=== PATIENT | female | born 1930 | race Caucasian/White ===

== ENCOUNTER 2019-05-22 16:01 | Inpatient (IN) ==
[2019-05-22 17:44] LABS: Basophils % 0.2 % (0.0-0.8); Hematocrit 28.7 VOL% (35.7-47.0); Hemoglobin 8.8 GM/DL (12.0-16.0); Immature Granulocytes % 1.2 %; Lymphocytes # 1.9 10*3/uL (1.4-4.0); Lymphocytes % 11.6 % (21.3-54.2); Mean Corpuscular HGB Conc 30.7 GM/DL (32-36); Mean Corpuscular Volume 102.5 FL (87-102); Mean Platelet Volume 12.6 FL (9.6-12.0); NRBC # 0.07 10*3/uL; Platelet Count 268 T/CUMM (130-400); Red Cell Distribution Width 20.2 % (9.3-17.3)
[2019-05-22 18:05] LABS: Alanine Aminotransferase 242 U/L (13-56); Albumin 1.4 G/DL (3.4-5.0); Alkaline Phosphatase 97 U/L (45-117); Aspartate Amino Transferase 656 U/L (0-37); Blood Urea Nitrogen 75 MG/DL (7-18); Estimated Glom Filtration Rate 22 ML/MIN; Glucose 381 MG/DL (74-106); Osmolality,Calculated 323.8 MOS/KG (273-304); Total Protein 6.7 G/DL (6.4-8.3)
[2019-05-22 18:06] LABS: Band Neutrophils 1 % (0-10); Lymphocytes 9 % (20-55); Nucleated Red Blood Cells 1 (0-5); Segmented Neutrophils 85 % (50-85); Total Cells Counted 100
[2019-05-22 18:07] LABS: Hypochromasia 1+
[2019-05-22 18:08] LABS: Anisocytosis 1+; Elliptocytes Few
[2019-05-22 18:09] LABS: Platelet Estimate Adequate
[2019-05-22] MEDS ORDERED: SODIUM CHLORIDE 0.9% 1,000 ML IV STA (19:58)
[2019-05-22] MEDS ORDERED: VANCOMYCIN INJ 1,000 MG in SODIUM CHLORIDE 0.9% 250 ML IV STA ×3 (19:58→20:23)
[2019-05-22] MEDS ORDERED: cefTRIAXone 1,000 MG in SODIUM CHLORIDE 0.9% 100 ML IV STA (19:58)
[2019-05-22] MEDS ORDERED: ONDANSETRON 4 MG/2 ML VIAL IV PRN (20:06)
[2019-05-22] MEDS ORDERED: cefTRIAXone 1,000 MG VIAL ONE (20:10)
[2019-05-22] MEDS ORDERED: SODIUM CHLORIDE 0.9% 100 ML IV ONE (20:10)
[2019-05-22] MEDS ORDERED: VANCOMYCIN 1,000 MG VIAL ONE (20:41)
[2019-05-22 20:50] LABS: Apearance,Urine CLEAR (Clear); Bacteria,Urine Occasional /HPF (Few); Bilirubin,Urine Negative (Negative); Blood, Urine Negative (Negative); Glucose,Urine (UA) Negative (Negative); Ketones,Urine Negative (Negative); Mucus,Urine Occasional /LPF (Occasional); Nitrite,Urine Negative (Negative); Protein,Urine Negative; RBC,Urine 2 /HPF (0-4); Squamous Epithelial Cell,Urine Occasional /HPF (0-10); Urine Color Yellow (Yellow); Urine Specific Gravity 1.018 (1.001-1.035); Urine Urobilinogen < 2.0 EU/DL (0.2-1.0); WBC,Urine 3 /HPF (0-6)
[2019-05-22] MEDS ORDERED: VANCOMYCIN INJ 1,250 MG in SODIUM CHLORIDE 0.9% 250 ML IV PRN (21:05)
[2019-05-22] MEDS ORDERED: VANCOMYCIN INJ 500 MG in SODIUM CHLORIDE 0.9% 250 ML IV ONE (21:30)
[2019-05-22] MEDS: SODIUM CHLORIDE 0.9% 1,000 ML IV SCH (22:22)
[2019-05-23 02:56] LABS: Basophils % 0.1 % (0.0-0.8); Eosinophils % 0.3 % (0.00-10.9); Hematocrit 26.2 VOL% (35.7-47.0); Hemoglobin 7.9 GM/DL (12.0-16.0); Immature Granulocytes Absolute 0.14 #; Lymphocytes # 1.6 10*3/uL (1.4-4.0); Lymphocytes % 11.2 % (21.3-54.2); Mean Corpuscular HGB Conc 30.2 GM/DL (32-36); Mean Platelet Volume 12.9 FL (9.6-12.0); Monocytes % 5.9 % (1.7-12.7); NRBC # 0.05 10*3/uL; Neutrophils % 81.5 % (38.7-73.9); Platelet Count 246 T/CUMM (130-400); Red Blood Count 2.52 MC/CUMM (3.8-5.5)
[2019-05-23 03:07] LABS: Calcium 8.2 MG/DL (8.5-10.1); Osmolality,Calculated 331.3 MOS/KG (273-304)
[2019-05-23 03:27] LABS: Band Neutrophils 1 % (0-10); Hypochromasia 2+; Lymphocytes 13 % (20-55); Ovalocytes Few; Platelet Estimate Normal; Segmented Neutrophils 83 % (50-85); Total Cells Counted 100
[2019-05-23] MEDS: FAMOTIDINE 20 MG/2 ML VIAL IV SCH (09:56)
[2019-05-23] MEDS ORDERED: VANCOMYCIN INJ 1,250 MG in SODIUM CHLORIDE 0.9% 250 ML IV ONE (12:00)
[2019-05-23] MEDS: SODIUM CHLORIDE 0.9% 1,000 ML IV SCH ×3 (12:29→20:07)
[2019-05-23] MEDS ORDERED: SODIUM CHLORIDE 0.9% 1,000 ML IV PRN (13:57)
[2019-05-23] MEDS ORDERED: DEXTROSE 50% 25 GM/50 ML VIAL IV PRN (13:59)
[2019-05-23] MEDS ORDERED: GLUCAGON 1 MG VIAL IM PRN (13:59)
[2019-05-23 14:40] LABS: INR 1.9; PT Patient Result 20.8 SECS (9.6-12.2)
[2019-05-23] MEDS: ALBUMIN 25% 25 GM in PREMIX 1 EACH IV SCH ×2 (14:58→21:40)
[2019-05-23] MEDS ORDERED: FUROSEMIDE 40 MG/4 ML VIAL ONE (20:00)
[2019-05-23] MEDS ORDERED: FUROSEMIDE 20 MG/2 ML VIAL IV ONE (20:11)
[2019-05-23] MEDS ORDERED: cefTRIAXone 1,000 MG in SYRINGE 1 EACH IV SCH (20:30)
[2019-05-23] MEDS: INSULIN GLARGINE 100 UNIT/ML SUBCUT SCH (20:54)
[2019-05-23] MEDS: INSULIN REGULAR 100 UNIT/ML SUBCUT SCH (20:54)
[2019-05-24] MEDS ORDERED: SODIUM CHLORIDE 0.9% 250 ML IV ONE (02:34)
[2019-05-24 03:07] LABS: Basophils % 0.2 % (0.0-0.8); Hemoglobin 10.4 GM/DL (12.0-16.0); Immature Granulocytes % 3.6 %; Immature Granulocytes Absolute 0.56 #; Lymphocytes # 1.5 10*3/uL (1.4-4.0); Lymphocytes % 9.6 % (21.3-54.2); Mean Corpuscular HGB Conc 30.6 GM/DL (32-36); Mean Corpuscular Volume 100.3 FL (87-102); Mean Platelet Volume 13.5 FL (9.6-12.0); Monocytes % 6.3 % (1.7-12.7); NRBC # 0.35 10*3/uL; Neutrophils % 80.3 % (38.7-73.9); Platelet Count 225 T/CUMM (130-400); Red Blood Count 3.39 MC/CUMM (3.8-5.5); Red Cell Distribution Width 19.1 % (9.3-17.3); White Blood Count 15.7 T/CUMM (4-12)
[2019-05-24 03:23] LABS: INR 3.7
[2019-05-24 03:36] LABS: PT Patient Result 40.1 SECS (9.6-12.2)
[2019-05-24 03:55] LABS: Lymphocytes 4 % (20-55); Nucleated Red Blood Cells 2 (0-5); Platelet Estimate Normal; Segmented Neutrophils 95 % (50-85); Total Cells Counted 100
[2019-05-24 03:56] LABS: Hypochromasia Slight; Polychromasia Few
[2019-05-24 04:15] LABS: Albumin 2.2 G/DL (3.4-5.0); Bilirubin,Total 1.3 MG/DL (0.2-1.0); Calcium 8.5 MG/DL (8.5-10.1); Total Protein 5.9 G/DL (6.4-8.3)
[2019-05-24] MEDS: SODIUM CHLORIDE 0.9% 1,000 ML IV SCH (05:57)
[2019-05-24] MEDS ORDERED: LEVOTHYROXINE 150 MCG TABLET PEG SCH (06:00)
[2019-05-24] MEDS: ALBUMIN 25% 25 GM in PREMIX 1 EACH IV SCH ×3 (06:00→22:13)
[2019-05-24] MEDS: INSULIN REGULAR 100 UNIT/ML SUBCUT SCH ×3 (06:30→18:41)
[2019-05-24] MEDS ORDERED: ceFAZolin 1,000 MG in SYRINGE 1 EACH IV ONE (06:53)
[2019-05-24] MEDS: FAMOTIDINE 20 MG/2 ML VIAL IV SCH (09:13)
[2019-05-24] MEDS: INSULIN GLARGINE 100 UNIT/ML SUBCUT SCH ×2 (09:14→21:10)
[2019-05-24] MEDS: DEXTROSE 5% 1,000 ML IV SCH (10:40)
[2019-05-24] MEDS: CEFEPIME 1,000 MG in SYRINGE 1 EACH IV SCH ×2 (12:07→22:13)
[2019-05-25] MEDS: INSULIN REGULAR 100 UNIT/ML SUBCUT SCH ×4 (00:15→18:00)
[2019-05-25 04:57] LABS: Basophils % 0.3 % (0.0-0.8); Eosinophils # 0.2 10*3/uL (0.0-0.87); Eosinophils % 1.3 % (0.00-10.9); Hematocrit 33.7 VOL% (35.7-47.0); Hemoglobin 10.6 GM/DL (12.0-16.0); Immature Granulocytes % 5.6 %; Immature Granulocytes Absolute 0.74 #; Lymphocytes # 1.9 10*3/uL (1.4-4.0); Lymphocytes % 14.6 % (21.3-54.2); Mean Corpuscular HGB Conc 31.5 GM/DL (32-36); Mean Corpuscular Volume 99.1 FL (87-102); Mean Platelet Volume 14.1 FL (9.6-12.0); Monocytes % 6.9 % (1.7-12.7); NRBC # 0.28 10*3/uL; Neutrophils % 71.3 % (38.7-73.9); Platelet Count 211 T/CUMM (130-400); Red Cell Distribution Width 18.6 % (9.3-17.3); White Blood Count 13.2 T/CUMM (4-12)
[2019-05-25 05:15] LABS: INR 3.8
[2019-05-25 05:19] LABS: Band Neutrophils 2 % (0-10); Hypochromasia 1+; Lymphocytes 15 % (20-55); Nucleated Red Blood Cells 1 (0-5); Ovalocytes Slight; Platelet Estimate Adequate; Segmented Neutrophils 74 % (50-85); Total Cells Counted 100
[2019-05-25 05:22] LABS: PT Patient Result 40.4 SECS (9.6-12.2)
[2019-05-25] MEDS: ALBUMIN 25% 25 GM in PREMIX 1 EACH IV SCH ×3 (05:39→22:51)
[2019-05-25] MEDS: LEVOTHYROXINE 175 MCG TABLET PEG SCH (05:39)
[2019-05-25] MEDS: DEXTROSE 5% 1,000 ML IV SCH (05:39)
[2019-05-25 05:50] LABS: Bilirubin,Total 1.4 MG/DL (0.2-1.0); Calcium 8.5 MG/DL (8.5-10.1); Total Protein 6.2 G/DL (6.4-8.3)
[2019-05-25] MEDS ORDERED: FUROSEMIDE 40 MG/4 ML VIAL IV ONE (06:40)
[2019-05-25] MEDS: INSULIN GLARGINE 100 UNIT/ML SUBCUT SCH ×2 (09:38→22:51)
[2019-05-25] MEDS: LIDOCAINE 5% PATCH TRANSDERM SCH (09:39)
[2019-05-25] MEDS: FAMOTIDINE 20 MG/2 ML VIAL IV SCH (09:42)
[2019-05-25] MEDS: CEFEPIME 1,000 MG in SYRINGE 1 EACH IV SCH ×2 (10:48→22:52)
[2019-05-25] MEDS ORDERED: FUROSEMIDE 40 MG/4 ML VIAL IV SCH (16:00)
[2019-05-25] MEDS: FUROSEMIDE 40 MG/4 ML VIAL IV SCH (16:12)
[2019-05-25] MEDS: ACETAMINOPHEN 325 MG TABLET PO PRN (17:43)
[2019-05-26] MEDS: INSULIN REGULAR 100 UNIT/ML SUBCUT SCH ×4 (01:17→19:08)
[2019-05-26] MEDS: DEXTROSE 5% 1,000 ML IV SCH ×2 (02:25→23:58)
[2019-05-26 05:02] LABS: INR 4.3
[2019-05-26 05:03] LABS: PT Patient Result 46.1 SECS (9.6-12.2)
[2019-05-26 05:06] LABS: Calcium 8.4 MG/DL (8.5-10.1); Osmolality,Calculated 329.7 MOS/KG (273-304); Prealbumin 6.2 MG/DL (20-40)
[2019-05-26] MEDS: LEVOTHYROXINE 175 MCG TABLET PEG SCH (05:33)
[2019-05-26] MEDS ORDERED: ceFAZolin 1,000 MG in SYRINGE 1 EACH IV ONE (06:00)
[2019-05-26] MEDS: ALBUMIN 25% 25 GM in PREMIX 1 EACH IV SCH ×3 (06:15→22:20)
[2019-05-26] MEDS ORDERED: PROTHROMBIN COMPLEX CONC 1,500 UNIT in IV BAG 1 EACH IV ONE (07:14)
[2019-05-26] MEDS ORDERED: SODIUM CHLORIDE 0.9% 1,000 ML IV PRN (07:14)
[2019-05-26 07:53] LABS: Basophils # 0.1 10*3/uL (0.0-0.2); Basophils % 0.3 % (0.0-0.8); Eosinophils # 0.2 10*3/uL (0.0-0.87); Hematocrit 30.7 VOL% (35.7-47.0); Hemoglobin 9.7 GM/DL (12.0-16.0); Immature Granulocytes % 5.1 %; Lymphocytes # 1.9 10*3/uL (1.4-4.0); Lymphocytes % 11.9 % (21.3-54.2); Mean Corpuscular HGB Conc 31.6 GM/DL (32-36); Mean Corpuscular Volume 99.7 FL (87-102); Mean Platelet Volume 13.6 FL (9.6-12.0); Monocytes % 6.5 % (1.7-12.7); NRBC # 0.26 10*3/uL; Neutrophils % 75.2 % (38.7-73.9); Platelet Count 192 T/CUMM (130-400); Red Blood Count 3.08 MC/CUMM (3.8-5.5); Red Cell Distribution Width 18.5 % (9.3-17.3); White Blood Count 15.6 T/CUMM (4-12)
[2019-05-26 07:59] LABS: Albumin 2.8 G/DL (3.4-5.0); Bilirubin,Direct 0.99 MG/DL (0.0-0.20); Bilirubin,Indirect 0.7 MG/DL (0.0-1.0); Bilirubin,Total 1.7 MG/DL (0.2-1.0); Total Protein 5.5 G/DL (6.4-8.3)
[2019-05-26 08:28] LABS: Anisocytosis 2+; Band Neutrophils 13 % (0-10); Eosinophils 1 % (0-10); Lymphocytes 9 % (20-55); Macrocytosis 1+; Nucleated Red Blood Cells 2 (0-5); Platelet Estimate Normal; Segmented Neutrophils 70 % (50-85); Total Cells Counted 100
[2019-05-26 08:29] LABS: Basophilic Stippling Slight; Poikilocytosis Slight
[2019-05-26] MEDS: FAMOTIDINE 20 MG/2 ML VIAL IV SCH (09:14)
[2019-05-26] MEDS: FUROSEMIDE 40 MG/4 ML VIAL IV SCH ×2 (09:14→16:47)
[2019-05-26] MEDS: carvediloL 3.125 MG TABLET PEG SCH ×2 (09:15→19:59)
[2019-05-26] MEDS: INSULIN GLARGINE 100 UNIT/ML SUBCUT SCH ×2 (09:22→19:59)
[2019-05-26] MEDS ORDERED: PROTHROMBIN COMPLEX IV ONE (10:15)
[2019-05-26] MEDS ORDERED: BUPIVACAINE MPF 0.25% 30 ML VIAL ONE (11:49)
[2019-05-26] MEDS ORDERED: LIDOCAINE 1% 20 ML VIAL ONE (11:49)
[2019-05-26] MEDS ORDERED: LACTATED RINGERS 1,000 ML IV SCH (12:00)
[2019-05-26] MEDS: CEFEPIME 1,000 MG in SYRINGE 1 EACH IV SCH ×2 (13:40→23:59)
[2019-05-26] MEDS: LIDOCAINE 5% PATCH TRANSDERM SCH (14:28)
[2019-05-26] MEDS ORDERED: POTASSIUM CHLORIDE 20 MEQ/15 ML UDCUP PER TUBE ONE (19:30)
[2019-05-26] MEDS: ACETAMINOPHEN 325 MG TABLET PO PRN (19:58)
[2019-05-27] MEDS: INSULIN REGULAR 100 UNIT/ML SUBCUT SCH ×5 (00:04→17:21)
[2019-05-27 04:51] LABS: Basophils % 0.3 % (0.0-0.8); Eosinophils # 0.2 10*3/uL (0.0-0.87); Eosinophils % 1.5 % (0.00-10.9); Hematocrit 30.6 VOL% (35.7-47.0); Hemoglobin 9.2 GM/DL (12.0-16.0); Immature Granulocytes % 5.4 %; Immature Granulocytes Absolute 0.84 #; Lymphocytes # 1.6 10*3/uL (1.4-4.0); Lymphocytes % 10.3 % (21.3-54.2); Mean Corpuscular HGB Conc 30.1 GM/DL (32-36); Mean Platelet Volume 13.9 FL (9.6-12.0); Monocytes % 6.8 % (1.7-12.7); Neutrophils % 75.7 % (38.7-73.9); Platelet Count 154 T/CUMM (130-400); Red Blood Count 3.03 MC/CUMM (3.8-5.5); Red Cell Distribution Width 18.1 % (9.3-17.3); White Blood Count 15.7 T/CUMM (4-12)
[2019-05-27] MEDS: LEVOTHYROXINE 175 MCG TABLET PEG SCH (05:09)
[2019-05-27 05:22] LABS: Albumin 3.3 G/DL (3.4-5.0); Bilirubin,Total 2.2 MG/DL (0.2-1.0); Calcium 8.5 MG/DL (8.5-10.1); Osmolality,Calculated 321.3 MOS/KG (273-304); Total Protein 5.9 G/DL (6.4-8.3)
[2019-05-27] MEDS: ALBUMIN 25% 25 GM in PREMIX 1 EACH IV SCH ×3 (05:30→17:20)
[2019-05-27 05:41] LABS: Band Neutrophils 2 % (0-10); Eosinophils 1 % (0-10); Lymphocytes 10 % (20-55); Nucleated Red Blood Cells 1 (0-5); Segmented Neutrophils 83 % (50-85); Total Cells Counted 100
[2019-05-27 05:42] LABS: Anisocytosis 1+
[2019-05-27 05:43] LABS: Ovalocytes Few; Platelet Estimate Adequate
[2019-05-27] MEDS: traMADol 50 MG TABLET PO PRN (09:33)
[2019-05-27] MEDS: carvediloL 3.125 MG TABLET PEG SCH (09:34)
[2019-05-27] MEDS: FUROSEMIDE 40 MG/4 ML VIAL IV SCH ×3 (09:34→17:31)
[2019-05-27] MEDS: LIDOCAINE 5% PATCH TRANSDERM SCH (09:35)
[2019-05-27] MEDS: FAMOTIDINE 20 MG/2 ML VIAL IV SCH (09:35)
[2019-05-27] MEDS: INSULIN GLARGINE 100 UNIT/ML SUBCUT SCH ×2 (09:36→21:39)
[2019-05-27] MEDS ORDERED: POTASSIUM CHLORIDE 20 MEQ/15 ML UDCUP PO ONE (10:08)
[2019-05-27 10:37] LABS: INR 2.8
[2019-05-27 10:44] LABS: PT Patient Result 30.2 SECS (9.6-12.2)
[2019-05-27] MEDS: CEFEPIME 1,000 MG in SYRINGE 1 EACH IV SCH ×2 (14:03→23:21)
[2019-05-27] MEDS: DEXTROSE 5% 1,000 ML IV SCH ×2 (15:02→17:33)
[2019-05-27] MEDS: POTASSIUM CHLORIDE 20 MEQ/15 ML UDCUP PER TUBE SCH ×2 (17:34→18:07)
[2019-05-28] MEDS: INSULIN REGULAR 100 UNIT/ML SUBCUT SCH ×4 (00:10→18:31)
[2019-05-28 03:27] LABS: Basophils # 0.1 10*3/uL (0.0-0.2); Basophils % 0.5 % (0.0-0.8); Eosinophils # 0.2 10*3/uL (0.0-0.87); Eosinophils % 1.3 % (0.00-10.9); Hemoglobin 9.6 GM/DL (12.0-16.0); Immature Granulocytes % 7.8 %; Immature Granulocytes Absolute 1.42 #; Lymphocytes # 1.9 10*3/uL (1.4-4.0); Lymphocytes % 10.3 % (21.3-54.2); Mean Corpuscular Volume 97.7 FL (87-102); Mean Platelet Volume 13.7 FL (9.6-12.0); Monocytes % 6.1 % (1.7-12.7); NRBC # 0.36 10*3/uL; Platelet Count 119 T/CUMM (130-400); Red Blood Count 3.07 MC/CUMM (3.8-5.5); Red Cell Distribution Width 18.1 % (9.3-17.3); White Blood Count 18.3 T/CUMM (4-12)
[2019-05-28 03:51] LABS: INR 2.4
[2019-05-28 03:52] LABS: PT Patient Result 26.1 SECS (9.6-12.2)
[2019-05-28 03:54] LABS: Calcium 8.3 MG/DL (8.5-10.1); Osmolality,Calculated 314.6 MOS/KG (273-304)
[2019-05-28 03:57] LABS: Albumin 3.2 G/DL (3.4-5.0); Bilirubin,Direct 1.2 MG/DL (0.0-0.20); Bilirubin,Indirect 1.3 MG/DL (0.0-1.0); Bilirubin,Total 2.5 MG/DL (0.2-1.0)
[2019-05-28 04:17] LABS: Band Neutrophils 11 % (0-10); Eosinophils 1 % (0-10); Lymphocytes 6 % (20-55); Myelocytes 1 %; Nucleated Red Blood Cells 2 (0-5); Segmented Neutrophils 71 % (50-85); Total Cells Counted 100
[2019-05-28 04:18] LABS: Anisocytosis 1+; Ovalocytes 1+; Platelet Estimate Adequate
[2019-05-28] MEDS: ALBUMIN 25% 25 GM in PREMIX 1 EACH IV SCH ×3 (06:10→17:59)
[2019-05-28] MEDS: LEVOTHYROXINE 175 MCG TABLET PEG SCH (06:10)
[2019-05-28] MEDS: DEXTROSE 5% 1,000 ML IV SCH ×2 (07:52→11:37)
[2019-05-28] MEDS: POTASSIUM CHLORIDE 20 MEQ/15 ML UDCUP PER TUBE SCH ×2 (08:55→22:14)
[2019-05-28] MEDS: traMADol 50 MG TABLET PO PRN ×3 (08:55→22:15)
[2019-05-28] MEDS: carvediloL 3.125 MG TABLET PEG SCH (08:56)
[2019-05-28] MEDS: LIDOCAINE 5% PATCH TRANSDERM SCH (08:56)
[2019-05-28] MEDS: FUROSEMIDE 40 MG/4 ML VIAL IV SCH ×2 (08:56→19:02)
[2019-05-28] MEDS: INSULIN GLARGINE 100 UNIT/ML SUBCUT SCH ×2 (08:57→22:16)
[2019-05-28] MEDS: FAMOTIDINE 20 MG/2 ML VIAL IV SCH (08:58)
[2019-05-28] MEDS: CEFEPIME 1,000 MG in SYRINGE 1 EACH IV SCH ×2 (10:40→23:09)
[2019-05-28] MEDS: SODIUM HYPOCHLORITE 0.25% IRRIG 473 ML BOTTLE TOP SCH (10:40)
[2019-05-28] MEDS: WARFARIN 2.5 MG TABLET PEG SCH (18:31)
[2019-05-29] MEDS: DEXTROSE 5% 1,000 ML IV SCH ×2 (01:23→17:12)
[2019-05-29] MEDS: INSULIN REGULAR 100 UNIT/ML SUBCUT SCH ×4 (01:25→18:46)
[2019-05-29 05:24] LABS: Calcium 8.5 MG/DL (8.5-10.1); Osmolality,Calculated 309.8 MOS/KG (273-304)
[2019-05-29 05:30] LABS: PT Patient Result 21.4 SECS (9.6-12.2)
[2019-05-29] MEDS: ALBUMIN 25% 25 GM in PREMIX 1 EACH IV SCH ×2 (06:39→17:12)
[2019-05-29] MEDS: LEVOTHYROXINE 175 MCG TABLET PEG SCH (06:40)
[2019-05-29] MEDS: INSULIN GLARGINE 100 UNIT/ML SUBCUT SCH ×2 (09:20→21:47)
[2019-05-29] MEDS: SODIUM HYPOCHLORITE 0.25% IRRIG 473 ML BOTTLE TOP SCH (09:20)
[2019-05-29] MEDS: POTASSIUM CHLORIDE 20 MEQ/15 ML UDCUP PER TUBE SCH ×2 (11:10→20:51)
[2019-05-29] MEDS: carvediloL 3.125 MG TABLET PEG SCH (11:10)
[2019-05-29] MEDS: FUROSEMIDE 40 MG/4 ML VIAL IV SCH ×2 (11:10→15:43)
[2019-05-29] MEDS: FAMOTIDINE 20 MG/2 ML VIAL IV SCH (11:10)
[2019-05-29] MEDS: LIDOCAINE 5% PATCH TRANSDERM SCH (11:11)
[2019-05-29] MEDS: CEFEPIME 1,000 MG in SYRINGE 1 EACH IV SCH ×2 (11:12→22:02)
[2019-05-29] MEDS: WARFARIN 2.5 MG TABLET PEG SCH (17:13)
[2019-05-29] MEDS: traMADol 50 MG TABLET PO PRN (17:13)
[2019-05-29] MEDS: ACETAMINOPHEN 325 MG TABLET PO PRN (21:56)
[2019-05-30] MEDS: INSULIN REGULAR 100 UNIT/ML SUBCUT SCH ×3 (00:28→13:09)
[2019-05-30] MEDS: ALBUMIN 25% 25 GM in PREMIX 1 EACH IV SCH ×2 (05:16→18:37)
[2019-05-30] MEDS: LEVOTHYROXINE 175 MCG TABLET PEG SCH (05:16)
[2019-05-30 05:23] LABS: INR 2.3
[2019-05-30 05:24] LABS: PT Patient Result 25.3 SECS (9.6-12.2)
[2019-05-30 05:30] LABS: Calcium 8.6 MG/DL (8.5-10.1); Osmolality,Calculated 298.4 MOS/KG (273-304)
[2019-05-30] MEDS: SODIUM HYPOCHLORITE 0.25% IRRIG 473 ML BOTTLE TOP SCH (09:15)
[2019-05-30] MEDS: traMADol 50 MG TABLET PO PRN (10:02)
[2019-05-30] MEDS: DEXTROSE 5% 1,000 ML IV SCH (10:09)
[2019-05-30] MEDS: LIDOCAINE 5% PATCH TRANSDERM SCH (10:26)
[2019-05-30] MEDS: INSULIN GLARGINE 100 UNIT/ML SUBCUT SCH (10:31)
[2019-05-30 10:34] LABS: Albumin 3.5 G/DL (3.4-5.0); Bilirubin,Direct 1.09 MG/DL (0.0-0.20); Bilirubin,Indirect 1.2 MG/DL (0.0-1.0); Bilirubin,Total 2.3 MG/DL (0.2-1.0); Total Protein 6.4 G/DL (6.4-8.3)
[2019-05-30] MEDS: POTASSIUM CHLORIDE 20 MEQ/15 ML UDCUP PER TUBE SCH (10:40)
[2019-05-30] MEDS: FAMOTIDINE 20 MG/2 ML VIAL IV SCH (10:56)
[2019-05-30 11:18] LABS: INR 2.4
[2019-05-30] MEDS: FUROSEMIDE 40 MG/4 ML VIAL IV SCH ×2 (11:18→15:32)
[2019-05-30] MEDS: HYDROcod/ACETAMIN 7.5-325 MG/15 ML UDCUP PO SCH ×2 (11:19→18:38)
[2019-05-30] MEDS: carvediloL 3.125 MG TABLET PEG SCH (11:19)
[2019-05-30 11:28] LABS: PT Patient Result 25.5 SECS (9.6-12.2)
[2019-05-30] MEDS ORDERED: CEFEPIME 1,000 MG in SODIUM CHLORIDE 0.9% 100 ML IV SCH ×2 (12:15→12:30)
[2019-05-30 12:48] LABS: Basophils # 0.1 10*3/uL (0.0-0.2); Basophils % 0.5 % (0.0-0.8); Eosinophils # 0.2 10*3/uL (0.0-0.87); Eosinophils % 0.9 % (0.00-10.9); Hematocrit 29.7 VOL% (35.7-47.0); Hemoglobin 9.3 GM/DL (12.0-16.0); Immature Granulocytes % 7.1 %; Immature Granulocytes Absolute 1.27 #; Lymphocytes # 2.1 10*3/uL (1.4-4.0); Lymphocytes % 11.4 % (21.3-54.2); Mean Corpuscular HGB Conc 31.3 GM/DL (32-36); Mean Platelet Volume 14.5 FL (9.6-12.0); Monocytes % 5.9 % (1.7-12.7); NRBC # 0.02 10*3/uL; Neutrophils % 74.2 % (38.7-73.9); Red Blood Count 2.97 MC/CUMM (3.8-5.5); Red Cell Distribution Width 18.9 % (9.3-17.3); White Blood Count 17.9 T/CUMM (4-12)
[2019-05-30 12:49] LABS: Platelet Count 78 T/CUMM (130-400)
[2019-05-30 13:12] LABS: Band Neutrophils 9 % (0-10); Eosinophils 2 % (0-10); Lymphocytes 12 % (20-55); Metamyelocytes 2 %; Platelet Estimate Decreased; Segmented Neutrophils 68 % (50-85); Total Cells Counted 100
[2019-05-30 13:13] LABS: Anisocytosis 1+; Giant Platelets Few; Polychromasia Slight
[2019-05-30 13:14] LABS: Macrocytosis 1+
[2019-05-30] MEDS: CEFEPIME 1,000 MG in SYRINGE 1 EACH IV SCH (14:04)
[2019-05-30] MEDS: WARFARIN 2.5 MG TABLET PEG SCH (18:37)
[2019-05-31 01:21] VITALS: BP 95/72
[2019-05-31] MEDS: HYDROcod/ACETAMIN 7.5-325 MG/15 ML UDCUP PO SCH ×3 (02:44→17:46)
[2019-05-31] MEDS: DEXTROSE 5% 1,000 ML IV SCH (07:54)
[2019-05-31] MEDS: INSULIN REGULAR 100 UNIT/ML SUBCUT SCH (07:54)
[2019-05-31] MEDS: SODIUM HYPOCHLORITE 0.25% IRRIG 473 ML BOTTLE TOP SCH (09:29)
[2019-06-01] MEDS: HYDROcod/ACETAMIN 7.5-325 MG/15 ML UDCUP PO SCH ×4 (01:05→18:19)
[2019-06-01] MEDS: SODIUM HYPOCHLORITE 0.25% IRRIG 473 ML BOTTLE TOP SCH (09:25)
[2019-06-01] MEDS: MORPHINE 4 MG/1 ML VIAL IV PRN ×2 (09:26→14:23)
[2019-06-02] MEDS: HYDROcod/ACETAMIN 7.5-325 MG/15 ML UDCUP PO SCH ×3 (00:28→12:29)
[2019-06-02] MEDS: SODIUM HYPOCHLORITE 0.25% IRRIG 473 ML BOTTLE TOP SCH (08:45)
== END 2019-06-02 13:58 | disposition hospice, inpatient (51) | DRG 853 ==
LOC: EDUNIT# → EDBD → N.ED 16:01 → N.EDINP 20:06 → N.5E 20:58
PROVIDERS: ADMIT Internal Medicine; ATTEND Internal Medicine

== ENCOUNTER 2019-06-02 14:34 | Inpatient (IN) ==
[2019-06-02] MEDS ORDERED: LORazepam 2 MG/1 ML VIAL IV PRN (17:28)
[2019-06-02] MEDS: MORPHINE 4 MG/1 ML VIAL IV PRN (23:54)
[2019-06-03] MEDS: MORPHINE 4 MG/1 ML VIAL IV PRN ×3 (06:41→12:39)
[2019-06-04] MEDS: MORPHINE 4 MG/1 ML VIAL IV PRN ×3 (02:42→15:13)
[2019-06-04 15:31] VITALS: BP 99/57
== END 2019-06-04 15:35 | disposition hospice, home (50) | DRG 951 ==
LOC: N.4E 14:34
PROVIDERS: ADMIT Internal Medicine; ATTEND Internal Medicine